=== PATIENT | female | born 1970 | race Two or more races ===

== ENCOUNTER → 2016-06-20 | Outpatient (CLI) | payer MEDICAID | LOC: WI 10:53 | PROVIDERS: ATTEND Physician Assistant | DX: N63 Unspecified lump in breast (principal) | CPT/HCPCS: 76641; G0204; 77066 ==

== ENCOUNTER → 2016-08-30 | Outpatient (CLI) | payer MEDICAID ==
--- NOTE | 2016-08-30 16:23 | RADIOLOGY REPORT (SQ) ---
EXAM DESCRIPTION: HIP LEFT AP/LATERAL COMPLETED DATE/TIME: 08/30/2016 4:14 pm REASON FOR STUDY: PAIN IN LEFT HIP M25.552 PAIN IN LEFT HIP M25.561 PAIN IN RIGHT KNEE COMPARISON: None. NUMBER OF VIEWS: Two views. TECHNIQUE: AP pelvis and additional frog-leg view of the left hip. LIMITATIONS: None. FINDINGS: MINERALIZATION: Normal. LEFT HIP: No fracture or dislocation. No worrisome bone lesions. RIGHT HIP: No fracture or dislocation. No worrisome bone lesions. PUBIS AND ISCHIUM: No fracture. PELVIS: No fracture. SACRUM: No fracture or dislocation. No worrisome bone lesions. LOWER LUMBAR SPINE: No fracture or dislocation. No worrisome bone lesions. No significant disc disea se. SOFT TISSUES: No findings. OTHER: No other significant finding. IMPRESSION: NEGATIVE STUDY OF THE LEFT HIP AND PELVIS. NO RADIOGRAPHIC EVIDENCE OF ACUTE INJURY. TECHNICAL DOCUMENTATION: JOB ID: [id number] [employer]- All Rights Reserved
--- NOTE | 2016-08-30 16:26 | RADIOLOGY REPORT (SQ) ---
EXAM DESCRIPTION: KNEE LEFT 4 VIEWS; KNEE RIGHT 4 VIEWS COMPLETED DATE/TIME: 08/30/2016 4:14 pm REASON FOR STUDY: CHRONIC BILAT KNEE PAIN COMPARISON: None. NUMBER OF VIEWS: Four views right knee. Four views left knee. LIMITATIONS: None. FINDINGS: Right knee: Normal bone density. Mild spurring along the medial compartment. Otherwise maintained joint spaces on nonweightbearing views. Arrows indicate the region of interest, pretibial / prepatellar. No significant abnormality appreciated here beyond minimal enthesophyte formation rigoberto ng tibial patellar tendon insertion. Minimal patellar spurring. Potential small joint effusion. Left knee: Normal bone density. Minimal spurring along the medial joint line. Otherwise maintained joint spaces on nonweightbearing views. Probable small joint effusion. Similar mild enthesophyte f ormation along tibial patellar tendon insertion. OTHER: No other significant finding. IMPRESSION: 1. No acute or suspicious findings in either knee. Mild bilateral medial compartment os teophytes. 2. Bilateral mild tibial enthesophytes along patellar tendon insertion. TECHNICAL DOCUMENTATION: JOB ID: [id number]
== END ==
LOC: OD 15:35
PROVIDERS: ATTEND Physician Assistant
DX: M25.552 Pain in left hip (principal); M25.561 Pain in right knee

== ENCOUNTER 2017-02-26 22:57 | Emergency (ER) | payer MEDICAID ==
[2017-02-26 23:06] VITALS: BP 111/69
[2017-02-27 01:11] LABS: ABSOLUTE BASOPHILS # (AUTO) 0.1 10^3/uL (0.0-0.2); ABSOLUTE EOSINOPHILS # (AUTO) 0.2 10^3/uL (0.0-0.6); ABSOLUTE LYMPHOCYTES (AUTO) 5.3 10^3/uL (0.5-4.7); ABSOLUTE MONOCYTES (AUTO) 1.5 10^3/uL (0.1-1.4); ABSOLUTE NEUT (AUTO) 5.9 10^3/uL (1.7-8.2); BASOPHILS % (AUTO) 0.6 % (0-2); EOSINOPHILS % (AUTO) 1.2 % (0-6); HEMATOCRIT 37.5 % (36.0-47.0); HEMOGLOBIN 11.6 g/dL (12.0-15.5); HGB HCT DIFFERENCE -2.7; LYMPHOCYTES % (AUTO) 41.2 % (13-45); MEAN CORPUSCULAR HEMOGLOBIN 23.8 pg (27.0-33.4); MEAN CORPUSCULAR VOLUME 77 fl (80-97); MONOCYTES % (AUTO) 11.6 % (3-13); RED BLOOD COUNT 4.87 10^6/uL (3.72-5.28); RED CELL DISTRIBUTION WIDTH 15.3 % (11.5-14.0); SEGMENTED NEUTROPHILS % (AUTO) 45.4 % (42-78)
[2017-02-27 01:22] LABS: ALANINE AMINOTRANSFERASE 42 U/L (9-52); ALKALINE PHOSPHATASE 79 U/L (38-126); ANION GAP 11 (5-19); ASPARTATE AMINO TRANSFERASE 19 U/L (14-36); BILIRUBIN,DIRECT 0.2 mg/dL (0.0-0.4); BILIRUBIN,TOTAL 0.2 mg/dL (0.2-1.3); BLOOD UREA NITROGEN 3 mg/dL (7-20); CALCIUM 8.9 mg/dL (8.4-10.2); CARBON DIOXIDE 28 mmol/L (22-30); CHLORIDE 108 mmol/L (98-107); CREATININE RESULT 0.79 mg/dL (0.52-1.25); POTASSIUM 3.7 mmol/L (3.6-5.0); SODIUM 146.6 mmol/L (137-145); TOTAL PROTEIN 6.6 g/dL (6.3-8.2)
[2017-02-27 01:43] LABS: APPEARANCE,URINE SLIGHTLY-CLOUDY; BILIRUBIN,URINE NEGATIVE (NEGATIVE); GLUCOSE, URINE NEGATIVE (NEGATIVE); KETONES,URINE NEGATIVE (NEGATIVE); LEUKOCYTE ESTERASE,URINE NEGATIVE (NEGATIVE); NITRITE,URINE NEGATIVE (NEGATIVE); PROTEIN,URINE NEGATIVE (NEGATIVE); URINE SPECIFIC GRAVITY 1.003; UROBILINOGEN,URINE NEGATIVE mg/dL (<2.0)
[2017-02-27 01:44] LABS: ALCOHOL < 10 mg/dL (NONE DETECTED)
[2017-02-27 01:48] LABS: GLUCOSE 39 mg/dL (75-110)
[2017-02-27 01:52] LABS: BACTERIA,URINE 1+ /HPF; RBC,URINE NONE SEEN /HPF; WBC,URINE 0-1 /HPF
[2017-02-27 02:33] LABS: URINE BARBITURATES SCREEN NEGATIVE; URINE METHADONE SCREEN NEGATIVE; URINE OPIATES LOW NEGATIVE; URINE PHENCYCLIDINE SCREEN NEGATIVE
[2017-02-27] MEDS ORDERED: LORAZEPAM 0.5 MG TABLET PO ONE (03:08)
[2017-02-27] MEDS ORDERED: TRAZODONE HCL 50 MG TABLET PO ONE (03:08)
--- NOTE | 2017-02-27 03:15 | ER Document Report ---
ED General - General Chief Complaint: Suicidal Ideation Stated Complaint: SUICIDIAL IDEATION Time Seen by Provider: 02/27/17 02:25 Notes: Patient is a 46-year-old female presents with complaints of anxiety and difficulty sleeping. Her chief complaints mentioned suicidal ideations. Also the triage note mentions suicidal ideations want to take medication to help her sleep. Patient says that she has a history of suicidal ideations but currently sectional suicidal. She says she has chronic depression but says that is at its baseline. She says she started herself in the past but has no plan to herself tonight does not want to hurt herself. Patient has some anxiety.. She says that is the reason why she is here because her anxiety has been worse than usual. She says she saw her psych psychiatrist yesterday who told her that if her anxiety worsens to return to ER. She is to follow-up appoint with her psychiatrist again this coming morning. She denies any recent fevers or infections. She again denies being suicidal and denies swelling to herself at this time. She has no other complaints at this time. Patient does request that she receive something to help with her anxiety and help her sleep and she wants to follow-up with her psychiatrist tomorrow at 3 PM as scheduled. TRAVEL OUTSIDE OF THE [place] IN LAST 30 DAYS: No - Related Data Allergies/Adverse Reactions: acetaminophen [From Percocet] Allergy (Verified 02/26/17 23:03) bupropion [From Wellbutrin] Allergy (Verified 02/26/17 23:03) hydrocodone [From Vicodin] Allergy (Verified 02/26/17 23:03) oxycodone [From Percocet] Allergy (Verified 02/26/17 23:03) propoxyphene [From Darvocet-N] Allergy (Verified 02/26/17 23:03) varenicline [From Chantix] Allergy (Verified 02/26/17 23:03) venlafaxine [From Effexor] Allergy (Verified 02/26/17 23:03) Past Medical History - Social History Smoking Status: Current Every Day Smoker Frequency of alcohol use: None Drug Abuse: None Family History: Reviewed & Not Pertinent Patient has suicidal ideation: Yes Patient has homicidal ideation: Yes Renal/ Medical History: Denies: Hx Peritoneal Dialysis Review of Systems - Review of Systems Notes: My Normal Review Basic REVIEW OF SYSTEMS: CONSTITUTIONAL : Denies fever, chills, or sweats. Denies recent illness. EENT: Denies eye, ear, throat, or mouth pain or symptoms. Denies nasal or sinus congestion. RESPIRATORY: Denies cough, cold, or chest congestion. Denies shortness of breath, difficulty breathing, or wheezing. GASTROINTESTINAL: Denies abdominal pain. Denies nausea, vomiting, or diarrhea. GENITOURINARY: Denies difficulty urinating, painful urination, burning, frequency, or blood in urine. MUSCULOSKELETAL: Denies neck or back pain or joint pain or swelling. SKIN: Denies rash or skin lesions. NEUROLOGICAL: Denies altered mental status or loss of consciousness. Denies headache. Denies weakness or paralysis or loss of use of either side. Denies problems with gait or speech. Denies sensory or motor loss. PSYCHIATRIC: Anxiety ALL OTHER SYSTEMS REVIEWED AND NEGATIVE. Physical Exam - Vital signs Vitals: Temp Pulse Resp BP Pulse Ox 98.3 F 83 18 111/69 98 02/26/17 23:03 02/26/17 23:03 02/26/17 23:03 02/26/17 23:03 02/26/17 23:03 - Notes Notes: General Appearance: Well nourished, alert, cooperative, no acute distress, no obvious discomfort. Well-appearing. Vitals: reviewed, See vital signs table. Head: no swelling or tenderness to the head Eyes: PERRL, EOMI, Conjuctiva clear Mouth: No decreasd moisture Lungs: No wheezing, No rales, No rhonci, No accessory muscle use, good air exchange bilaterally. Heart: Normal rate, Regular rythm, No murmur, no rub Abdomen: Normal BS, soft, No rigidity, No abdominal tenderness, No guarding, no rebound, no abdominal masses, no organomegaly Extremities: strength 5/5 in all extremities, good pulses in all extremities, no swelling or tenderness in the extremities, no edema. Skin: warm, dry, appropriate color, no rash Neuro: speech clear, oriented x 3, normal affect, responds appropriately to questions. Cancer: Patient is actually upbeat and smiling and not depressed appearing at all on exam. She answers all questions appropriately. Course - Re-evaluation Re-evalutation: 02/27/17 07:02 The patient safe to be discharged home. No said her BMP that showed a blood sugar is 39. Patient was given some food before evaluated. Her replacement check blood sugars 100. She is awake alert and appropriate. She again requests just to have something for anxiety and help her sleep tonight. I will try her on trazodone. I will give her 1 dose here. She is post follow-up with psychiatrist later today at 3 PM. I informed her to see how this medication Effexor and see if it helps him to talk to her psychiatrist about whether or not they want to continue it. I encouraged her return to ER immediately if she has severe depression, thoughts of suicide, she feels unwell. Patient's son will be picking her up. Dictation of this chart was performed using voice recognition software; therefore, there may be some unintended grammatical errors. - Vital Signs Vital signs: Temp Pulse Resp BP Pulse Ox 98.3 F 83 11 L 111/69 98 02/26/17 23:03 02/26/17 23:03 02/27/17 03:00 02/26/17 23:03 02/27/17 03:00 - Laboratory Result Diagrams: 02/27/17 00:45 02/27/17 00:45 Laboratory results interpreted by me: 02/27/17 02/27/17 00:45 00:45 WBC 13.0 H Hgb 11.6 L MCV 77 L MCH 23.8 L MCHC 31.0 L RDW 15.3 H Absolute Lymphocytes 5.3 H Absolute Monocytes 1.5 H Sodium 146.6 H Chloride 108 H BUN 3 L Glucose 39 L* Salicylates < 1.0 L Acetaminophen < 10 L Discharge - Discharge Clinical Impression: Anxiety Insomnia Qualifiers: Insomnia type: unspecified Qualified Code(s): G47.00 - Insomnia, unspecified Depression Qualifiers: Depression Type: unspecified Qualified Code(s): F32.9 - Major depressive disorder, single episode, unspecified Condition: Good Disposition: HOME, SELF-CARE Additional Instructions: We gave you a dose of Trazodone to see if this helps you with sleep and anxiety. Please follow up with your doctor today as scheduled. Please return to the ER immediately if you develop thoughts of suicide, have worsening anxiety , or have any further concerns. Referrals: JACINTO DAVIDSON, DO [Primary Care Provider] - Follow up as needed
== END 2017-02-27 03:20 | disposition home or self-care (01) ==
LOC: ER 22:57
DX: G47.00 Insomnia, unspecified (principal); F41.9 Anxiety disorder, unspecified; R45.851 Suicidal ideations; F32.9 Major depressive disorder, single episode, unspecified; F17.200 Nicotine dependence, unspecified, uncomplicated; Z88.6 Allergy status to analgesic agent
CPT/HCPCS: 99284; 36415; 82962; 80307 ×4; 84703; 85025; 80053; 81001; J3490

== ENCOUNTER 2017-07-03 22:10 | Emergency (ER) | payer MEDICAID ==
--- NOTE | 2017-07-03 23:23 | RADIOLOGY REPORT (SQ) ---
EXAM DESCRIPTION: FOOT LEFT COMPLETE CLINICAL HISTORY: 47 years, Female, pain s/p injury COMPARISON: None. NUMBER OF VIEWS: 3 Findings: Small plantar fascial enthesophyte. Bones, joints, and soft tissues of FOOT LEFT appear otherwise intact. No significant effusion. IMPRESSION: No acute findings.
--- NOTE | 2017-07-03 23:40 | ER Document Report ---
ED Extremity Problem, Lower - General Chief Complaint: L foot pain/ injury Stated Complaint: LEFT FOOT PAIN Time Seen by Provider: 07/03/17 23:27 Mode of Arrival: Ambulatory Notes: History of present illness-47 years old female coming down the steps missed 2 steps and sprained her right foot since then having pain over the midfoot. Unable to bear weight. Denies any pain or discomfort over the ankle. Denies any other injuries. REVIEW OF SYSTEMS: CONSTITUTIONAL : Denies fever, chills, or sweats. Denies recent illness. EENT: Denies eye, ear, throat, or mouth pain or symptoms. Denies nasal or sinus congestion or discharge. Denies throat, tongue, or mouth swelling or difficulty swallowing. CARDIOVASCULAR: Denies chest pain. Denies palpitations or racing or irregular heart beat. Denies ankle edema. RESPIRATORY: Denies cough, cold, or chest congestion. Denies shortness of breath, difficulty breathing, or wheezing. GASTROINTESTINAL: Denies abdominal pain or distention. Denies nausea, vomiting , or diarrhea. Denies blood in vomitus, stools, or per rectum. Denies black, tarry stools. Denies constipation. GENITOURINARY: Denies difficulty urinating, painful urination, burning, frequency, blood in urine, or discharge. FEMALE GENITOURINARY: Denies vaginal bleeding, heavy or abnormal periods, irregular periods. Denies vaginal discharge or odor. MUSCULOSKELETAL: Denies back or neck pain or stiffness. Denies joint pain or swelling. SKIN: Denies rash, lesions or sores. HEMATOLOGIC : Denies easy bruising or bleeding. LYMPHATIC: Denies swollen, enlarged glands. NEUROLOGICAL: Denies confusion or altered mental status. Denies passing out or loss of consciousness. Denies dizziness or lightheadedness. Denies headache. Denies weakness or paralysis or loss of use of either side. Denies problems with gait or speech. Denies sensory loss, numbness, or tingling. Denies seizures. PSYCHIATRIC: Denies anxiety or stress. Denies depression, suicidal ideation, or homicidal ideation. ALL OTHER SYSTEMS REVIEWED AND NEGATIVE. PHYSICAL EXAMINATION: GENERAL: Well-appearing, well-nourished and in no acute distress. HEAD: Atraumatic, normocephalic. EYES: Pupils equal round and reactive to light, extraocular movements intact, conjunctiva are normal. ENT: Nares patent, oropharynx clear without exudates. Moist mucous membranes. NECK: Normal range of motion, supple without lymphadenopathy LUNGS: Breath sounds clear to auscultation bilaterally and equal. No wheezes rales or rhonchi. HEART: Regular rate and rhythm without murmurs ABDOMEN: Soft, nontender, nondistended abdomen. No guarding, no rebound. No masses appreciated. Female : deferred Musculoskeletal: Examination of the left foot there were no swelling noted no discoloration of the skin. Midportion of the foot almost to the proximal end of the middle metatarsal bone and cuboid bone area is sharply tender on palpation. She was unable to bear weight on that side. NEUROLOGICAL: Cranial nerves grossly intact. Normal speech, normal gait. Normal sensory, motor exams PSYCH: Normal mood, normal affect. SKIN: Warm, Dry, normal turgor, no rashes or lesions noted. Dictation was performed using [employer] voice recognition software history of present illness TRAVEL OUTSIDE OF THE [place] IN LAST 30 DAYS: No - HPI Patient complains to provider of: Injury, Pain Location: Foot Where: Indoors. No: Home, Neighbor's, Long-Term, Outdoors, Public place, School, Sports, Work, Other Onset/Duration: Sudden. denies: Gradual, Constant, Intermittent, Persistent, Waxing and waning, Better, Worse, Gone Quality of pain: Sharp Severity: Moderate Pain Level: 3 Context: Twisted. denies: Barefoot, Burn, Crush, Direct blow, Fell, Laceration , Prolonged pressure on ext, Recent immobilization, Recent surgery, Recent travel, Stubbed, Wearing shoes, Other Recent injury: Possibly Associated symptoms: denies: Chest pain, Chills, Dizzy, Fainting, Fever, [place] a crack, [place] a pop, Hurts to breath, Painful ambulation, Rapid heart rate, Seizure, Short of breath, Sweaty, Unable to bear weight, Weak, Other Exacerbated by: denies: Nothing, Hanging down, Movement, Walking, Other Relieved by: denies: Nothing, Elevation, Ice, Rest, Other - Related Data Allergies/Adverse Reactions: bupropion [From Wellbutrin] Allergy (Verified 07/03/17 23:42) hydrocodone [From Vicodin] Allergy (Verified 07/03/17 23:42) oxycodone [From Percocet] Allergy (Verified 07/03/17 23:42) propoxyphene [From Darvocet-N] Allergy (Verified 07/03/17 23:42) varenicline [From Chantix] Allergy (Verified 07/03/17 23:42) venlafaxine [From Effexor] Allergy (Verified 07/03/17 23:42) Past Medical History - General Information source: Patient - Social History Smoking Status: Current Every Day Smoker Chew tobacco use (# tins/day): No Smoking Education Provided: No Frequency of alcohol use: Rare Drug Abuse: None Lives with: Family Family History: Reviewed & Not Pertinent Renal/ Medical History: Denies: Hx Peritoneal Dialysis Review of Systems - Review of Systems Notes: Reviewed in the chart Physical Exam - Vital signs Vitals: Temp Pulse Resp BP Pulse Ox 98.2 F 101 H 20 125/70 98 07/03/17 22:21 07/03/17 22:21 07/03/17 22:21 07/03/17 22:21 07/03/17 22:21 Course - Re-evaluation Re-evalutation: 07/04/17 02:35 X-ray was done which was reported by radiologist as no fracture. Patient remained in moderate to severe discomfort. Therefore CT was ordered. CT shows no obvious fracture. Reported by radiologist. She was given Toradol and Tylenol. She is allergic to other medications. - Vital Signs Vital signs: Temp Pulse Resp BP Pulse Ox 98.2 F 101 H 20 125/70 98 07/03/17 22:21 07/03/17 22:21 07/03/17 22:21 07/03/17 22:21 07/03/17 22:21 - Diagnostic Test Radiology reviewed: Reports reviewed - CT as well as x-ray reported by radiologist as no fractures Discharge - Discharge Clinical Impression: Foot pain, left Condition: Fair Disposition: HOME, SELF-CARE Instructions: Foot Fracture ([facility]) Prescriptions: Diclofenac Sodium 75 mg PO BID PRN #30 tablet.dr COOLEY Reason:
[2017-07-03] MEDS ORDERED: KETOROLAC TROMETHAMINE 60 MG/2 ML SDV IM ONE (23:43)
--- NOTE | 2017-07-04 01:58 | RADIOLOGY REPORT (SQ) ---
EXAM DESCRIPTION: CT LT LOWER EXTREMITY WITHOUT CLINICAL HISTORY: 47 years Female, Left foot pain COMPARISON: None. TECHNIQUE: No contrast. Coronal and sagittal reformat. This exam was performed according to our departmental dose-optimization program, which includes automated exposure control, adjustment of the mA and/or kV according to patient size and/or use of iterative reconstruction technique. FINDINGS: Mild osteoarthritis. Small plantar fascial enthesophyte. No significant joint effusion. First metatarsus appears intact, as queried. 0.3 cm ossicular fragmentation and anterior talotibial joint probably degenerative. Remainder left foot and ankle are unremarkable. IMPRESSION: No acute findings.
[2017-07-04] MEDS ORDERED: ACETAMINOPHEN 325 MG TABLET PO ONE (02:01)
[2017-07-04 03:20] VITALS: BP 109/64
== END 2017-07-04 03:20 | disposition home or self-care (01) ==
LOC: ER 22:10
DX: M79.672 Pain in left foot (principal); F17.200 Nicotine dependence, unspecified, uncomplicated; Z88.6 Allergy status to analgesic agent
CPT/HCPCS: 99284; 73630; 73700; J3490; J1885

== ENCOUNTER → 2017-07-13 | Outpatient (CLI) | payer MEDICAID ==
[2017-07-13 12:08] LABS: HEMATOCRIT 36.4 % (36.0-47.0); HEMOGLOBIN 11.5 g/dL (12.0-15.5); MEAN CORPUSCULAR HEMOGLOBIN 22.8 pg (27.0-33.4); MEAN CORPUSCULAR HGB CONC 31.6 g/dL (32.0-36.0); MEAN CORPUSCULAR VOLUME 72 fl (80-97); PLATELET COUNT 350 10^3/uL (150-450); RED BLOOD COUNT 5.04 10^6/uL (3.72-5.28); WHITE BLOOD COUNT 10.1 10^3/uL (4.0-10.5)
[2017-07-13 12:33] LABS: ALANINE AMINOTRANSFERASE 33 U/L (9-52); ALKALINE PHOSPHATASE 78 U/L (38-126); ANION GAP 12 (5-19); ASPARTATE AMINO TRANSFERASE 13 U/L (14-36); BILIRUBIN,DIRECT 0.2 mg/dL (0.0-0.4); BILIRUBIN,TOTAL 0.2 mg/dL (0.2-1.3); BLOOD UREA NITROGEN 8 mg/dL (7-20); CALCIUM 9.3 mg/dL (8.4-10.2); CARBON DIOXIDE 25 mmol/L (22-30); CHLORIDE 105 mmol/L (98-107); CHOLESTEROL 190.65 mg/dL (0-200); GLUCOSE 91 mg/dL (75-110); POTASSIUM 4.2 mmol/L (3.6-5.0); SODIUM 142.3 mmol/L (137-145); TOTAL PROTEIN 6.7 g/dL (6.3-8.2); TRIGLYCERIDES 111 mg/dL (<150)
[2017-07-13 12:44] LABS: DIRECT LDL 110 mg/dL (<100)
== END ==
LOC: OD 11:20
PROVIDERS: ATTEND Internal Medicine Cardiovascular Disease
DX: E78.5 Hyperlipidemia, unspecified (principal); R00.2 Palpitations; R06.01 Orthopnea
CPT/HCPCS: 36415; 80048; 80061; 80076; 83735; 83880; 84443; 85027

== ENCOUNTER → 2017-08-15 | Outpatient (CLI) | payer MEDICAID ==
[2017-08-15 14:26] LABS: APPEARANCE,URINE SLIGHTLY-CLOUDY; BILIRUBIN,URINE NEGATIVE (NEGATIVE); COLOR,URINE STRAW; GLUCOSE, URINE NEGATIVE (NEGATIVE); KETONES,URINE NEGATIVE (NEGATIVE); LEUKOCYTE ESTERASE,URINE NEGATIVE (NEGATIVE); NITRITE,URINE NEGATIVE (NEGATIVE); PROTEIN,URINE NEGATIVE (NEGATIVE); URINE SPECIFIC GRAVITY 1.003; UROBILINOGEN,URINE NEGATIVE mg/dL (<2.0)
== END ==
LOC: OD 12:43
PROVIDERS: ATTEND Internal Medicine Cardiovascular Disease
DX: D64.9 Anemia, unspecified (principal)
CPT/HCPCS: 81001; 82272